=== PATIENT | male | born 1955 | race Caucasian/White ===

== ENCOUNTER 2024-11-21 09:21 | Outpatient (REF) | payer BC, MEDICARE, SELFPAY ==
--- NOTE | ~2024-11-21 | XR_ITS ---
EXAMINATION: XR SHOULDER 2 OR MORE VIEWS RIGHT HISTORY: M25.519 - Pain in unspecified shoulder COMPARISON: There are no prior studies available for comparison. FINDINGS: Three views of the right shoulder are submitted. Osseous mineralization is normal. There is no fracture or dislocation. The glenohumeral joint is maintained. There is moderate degenerative change of the AC joint with joint space narrowing. A soft tissue calcification adjacent to the greater tuberosity of the humerus is likely related to the rotator cuff. XR/XR shoulder RT min 2V IMPRESSION: Moderate osteoarthritis of the AC joint. Probable rotator cuff calcification. Electronically signed by: Mitchell Coronado MD 11/24/2024 09:24 AM JULIO CÉSAR
== END 2024-11-21 09:22 | disposition home or self-care (01) ==
LOC: HO.HOSX 09:21
PROVIDERS: Visit Provider Physician Assistant
DX: M25.511 Pain in right shoulder (principal); S46.009A Unspecified injury of muscle(s) and tendon(s) of the rotator cuff of unspecified shoulder, initial encounter; M75.31 Calcific tendinitis of right shoulder
CPT/HCPCS: 20610; 73030; 99202; J1010; J2003

== ENCOUNTER 2024-11-21 13:09 | Outpatient (AMB) | payer MEDICARE, SELFPAY ==
--- NOTE | 2024-11-21 13:27 | A.OFFVIS_ITS ---
Intake Visit Reasons: New Pt - RT shoulder pain Intake Note: Rad is a 69 year old left hand dominant male who presents today as a new patient for a evaluation of his right shoulder pain. Hx of injury about 3 weeks ago. Patient reports her was lifting his tire from his truck when he felt pain in his right shoulder. He mentions that his pain sometimes radiates up to his neck and moves down to his bicep. He states he tried taking Aleve which didn't give him much relief. Allergies No Known Allergies [No Known Allergies*] Allergy (Verified 11/21/24 13:44) HPI HPI New Pt - RT shoulder pain: Details: Mr. More 69-year-old left-hand dominant male who presents to the office today for evaluation of right shoulder pain. He reports that roughly 3 weeks ago he was lifting a tire into the truck and he felt right shoulder pain. He denies any popping or snapping sensation. He reports that he had a cortisone injection into the right shoulder roughly 3 years ago which gave him great relief. He denies any anti-inflammatory use or physical therapy. [facility] Social History (Updated 11/21/24 @ 13:45 by Hansel Mcneil) Alcohol intake: never Patient Tobacco Use Status: Never used Tobacco Current occupational status: employed Current occupation: Punching press/ left hand dominant Review of Systems Const All systems reviewed & are unremarkable except as noted in HPI and below Physical Exam Const General: cooperative, healthy appearing and no acute distress Resp Effort & Inspection: normal respiratory effort and able to speak in complete sentences Cardio Rate: regular rate Peripheral pulses: Peripheral pulses 2+ throughout GI Palpation (GI): Soft to palpation Skin Lesions: no lesions Rashes: no rashes Extrem Other: Right shoulder: Forward flexion and abduction to end range with pain. Pain with cross-body reach. 4/5 strength with empty can. Negative drop arm. NVI. Office Procedures AMB Joint Injection/Aspiration Joint Injection/Aspiration Primary Site: right shoulder Prep: site was prepped using aseptic technique, ethochloride spray was applied and injection warnings given Injected: 80 mg of, DepoMedrol, with 8 mL of (2% plain lido ) and in the [place] bcromial space Approach Used: posterolateral Procedure: The patient tolerated the procedure well, but had some pain with the injection and there was some relief with the local anesthesia Coding 39032 - Large joint Procedure code (CPT) selection complete Assessment & Plan Assessment & Plan (1) Rotator cuff injury: Code(s): S46.009A - Unspecified injury of muscle(s) and tendon(s) of the rotator cuff of unspecified shoulder, initial encounter Category: Medical (2) Calcific tendinitis of right shoulder: Code(s): M75.31 - Calcific tendinitis of right shoulder Category: Medical Plan Mr. More 69-year-old left-hand dominant male who presents to the office today for evaluation of right shoulder pain. He reports that roughly 3 weeks ago he was lifting a tire into the truck and he felt right shoulder pain. He denies any popping or snapping sensation. He reports that he had a cortisone injection into the right shoulder roughly 3 years ago which gave him great relief. He denies any anti-inflammatory use or physical therapy. The patient was offered a?cortisone?injection in the?right shoulder with 80 mg of DepoMedrol. The patient was explained the risks, benefits, and alternatives to receiving this injection. After receiving consent for the injection, the patient had the procedure done while in the office today. The patient tolerated the procedure well with no complications.? We did discuss the role of physical therapy in the office today however the patient has elected to hold off at this time. She continued to have pain that would be the next step in his treatment plan. X-rays obtained in the office today were reviewed by me, Savita Oliveira PA-C, and reveal calcific tendinitis of the right shoulder. No acute fracture or dislocation. Orders: Orders XR shoulder RT min 2V Today M25.519 - Pain in unspecified shoulder Coding Level of Care Code New Pt Level 3 (60897) Diagnoses Rotator cuff injury S46.009A Calcific tendinitis of right shoulder M75.31 CPT Codes Coding - Large joint: 59952 - Large joint ([id number])
== END 2024-11-21 14:14 | disposition home or self-care (01) ==
PROVIDERS: PCP Family Medicine; Visit Provider Physician Assistant
DX: S46.001A Unspecified injury of muscle(s) and tendon(s) of the rotator cuff of right shoulder, initial encounter (principal); M75.31 Calcific tendinitis of right shoulder
CPT/HCPCS: 20610; 99203

== ENCOUNTER 2024-12-29 14:45 | Outpatient (AMB) | payer MEDICARE, BC, SELFPAY ==
--- NOTE | 2024-12-29 15:07 | A.OFFPC_ITS ---
Vital Signs 12/29/24 15:19 Height 5 ft 8 in Weight 193 lb 6 oz BMI 29.4 BP 116/68 Position Sitting Respiration 14 Pulse 78 Pulse Source Pulse Oximeter Temp 98.0 F Temp Source Oral Pulse Oximetry (%) 96 Oxygen Delivery Method Room Air Intake Visit Reasons: Establish Care Intake Note: establish care Allergies No Known Allergies [No Known Allergies*] Allergy (Verified 12/29/24 15:14) Medication List - Last Reconciled 12/29/24 by Jerome Sofia MD No Known Home Meds Tobacco use date assessed: 12/29/24 Fall risk assessment: 1 Fall in past year Last assessed Fall Risk: 12/29/24 Dental Screening Dental Screen Date: 12/29/24 Did you have a dental visit in the last 12 months?: Yes Did you have a dental problem in the last 6 months where you did not have access to dental care?: No Was dental information given to patient?: No HPI Establish Care HPI Details New Patient? ?? Prior PCP:?Samy Donato Last office visit/CPE:? * + yrs Acute issue(s):? Shoulder pain Calcific tendonitis and saw Dr Stout. Had Steroid injection. Didn't help much. Sleep distubances - abnormal work shift ?? PMHx:? Carpal Tunnel SurgHx:? L Carpal tunnel FHx:?Dad: Lived to 90s, Bladder [place]. Mom: Breast [place] SocHx:? Nonsmoker. EtOH None. No drugs PFSH Social History Housing: House Alcohol intake: never Patient Tobacco Use Status: Never used Tobacco e-Cigarette/Vaping Use: Never Used Second Hand Smoke Exposure: No Current occupational status: employed Current occupation: Punching press/ left hand dominant Cognitive needs: No Hearing needs: No Vision needs: No Questionnaire PHQ-9 Over the last 2 weeks, how often have you been bothered by any of the following problems? 1. Little interest or pleasure in doing things: not at all 2. Feeling down, depressed, or hopeless: not at all 3. Trouble falling or staying asleep, or sleeping too much: several days 4. Feeling tired or having little energy: not at all 5. Poor appetite or overeating: not at all 6. Feeling bad about yourself - or that you are a failure or have let yourself or your family down: not at all 7. Trouble concentrating on things, such as reading the newspaper or watching television: not at all 8. Moving or speaking so slowly that other people could have noticed. Or the opposite - being so fidgety or restless that you have been moving around a lot more than usual: not at all 9. Thoughts that you would be better off or of hurting yourself in some way: not at all Total score: 1 Depression Screening Interpretation: Negative Depression Screening Done: Yes 99535 - PHQ-9 Billing: Yes Source: Developed by Drs. Mitchell Jaramillo, Madeleine Childs, Chaka Fitzgerald and colleagues, with an educational tamiko from [employer]. Thrive Questionnaire Date Thrive assessed: 12/29/24 I am a: Patient What is your living situation today?: I have a steady place to live Within the past 12 months, did the food you bought not last and you didn't have the money to get more?: Never true Within the past 12 months, did you worry whether your food would run out before you got money to buy more?: Never true Do you have trouble paying for medicines?: No Do you have trouble getting transportation to medical appointments?: No Do you have trouble paying your heating and electricity bill?: No Do you have trouble taking care of your child, family member or friend?: No Do you have trouble with day-to-day activities such as bathing, preparing meals, shopping, managing finances, etc.?: No Are you currently unemployed and looking for a job?: No Are you interested in more education?: No Please select the resources that you would like help with: None Currently or been in a relationship where the following occur: No concerns reported THRIVE Score: 0 AUDIT C Alcohol Use Questionnaire (AUDIT-C) 1. How often do you have a drink containing alcohol?: Never 3. How often do you have six or more drinks on one occasion?: Never Total Score: 0 Score Reviewed/Action Taken: Yes SHAHAB-7 AMB Questionnaire SHAHAB-7 Date SHAHBA - 7 assessed: 12/29/24 Feeling nervous, anxious, or on edge: 0 = Not at all Not being able to stop or control worryin = Not at all Worrying too much about different things: 0 = Not at all Trouble relaxin = Not at all Being so restless that it is hard to sit still: 0 = Not at all Becoming easily annoyed or irritable: 0 = Not at all Feeling afraid as if something awful might happen: 0 = Not at all Total SHAHAB-7 score (0-4 normal; 5-9 mild; 10-14 moderate; 15-21 severe): 0 Source: Developed by Drs. Mitchell Jaramillo, Madeleine Childs, Chaka Fitzgerald and colleagues, with an educational tamiko from [employer]. SHAHAB-7 Assessment Billing SHAHAB-7 Assessment Tool: SHAHAB-7 Assessment 97603 Review of Systems Const Denies chills, Denies fatigue, Denies fever(s), Denies headache(s) and Denies weakness ENT Denies dizziness and Denies headache(s) Card Denies chest pain, Denies lightheadedness, Denies dyspnea and Denies other (Palpitations) Resp Denies cough, Denies dyspnea, Denies wheezing and Denies other ( shortness of breath) Musc Denies numbness and Denies tingling Neuro Denies dizziness, Denies headache(s), Denies numbness, Denies tingling, Denies paresthesias and Denies weakness Psych Denies anxiety and Denies depression Endo Denies fatigue Aller/Immun Denies wheezing Physical exam (Primary Care) Vital Signs: Last Vital Signs Temp 98.0 F 12/29/24 15:19 Pulse 78 12/29/24 15:19 Resp 14 12/29/24 15:19 BP 116/68 12/29/24 15:19 Pulse Ox 96 12/29/24 15:19 Oxygen Delivery Method Room Air 12/29/24 15:19 BMI result Body Mass Index 29.4 Tobacco/Smoking Status: Tobacco use Status Tobacco use date assessed 12/29/24 12/29/24 15:25 Patient Tobacco Use Status Never used Tobacco 12/29/24 15:08 e-Cigarette/Vaping Use Never Used 12/29/24 15:25 PHQ-9: PHQ-9 Score PHQ-9: Total score 1 12/29/24 15:45 Depression Screening Interpretation: Negative Thrive Assessment: Date of Thrive Assessment Date Thrive assessed 12/29/24 12/29/24 15:25 Currently or been in a relationship where the following occur: No concerns reported Const General: no acute distress and well developed Nutritional Appearance: well nourished Orientation/consciousness: patient oriented x3 HENMT Head: Yes normocephalic and Yes atraumatic Eyes General: appearance normal, both eyes and all related structures Pupils: Equal, round and reactive pupils present EOM: EOMs intact bilaterally Resp Effort & Inspection: normal respiratory effort Auscultation: clear to auscultation bilaterally Cardio Rate: regular rate Rhythm: regular rhythm Heart sounds: S1 normal heart sound present, S2 normal heart sound present, no gallops, no murmurs and no rubs Neuro General: patient oriented x3 and gait normal Cranial nerves: Yes Equal, round and reactive pupils present Psych Affect: normal affect Coding Level of Care Code New Pt Level 3 (88553) Diagnoses Shoulder pain M25.519 Sleep disturbances G47.9 Laboratory exam ordered as part of routine general medical examination Z00.00 Additional Codes SHAHAB-7 Assessment Billing - SHAHAB-7 Assessment Tool: SHAHAB-7 Assessment 62901 ([id number]) PHQ-9 - 89793 - PHQ-9 Billing: Yes ([id number]) Assessment & Plan Assessment & Plan (1) Shoulder pain: Code(s): M25.519 - Pain in unspecified shoulder Category: Medical Plan: Intermittent,?recurrent?right?shoulder?pain and?patient?relates?th at?he?has?told?he?has?calcifications?there. Can?use?ice/heat Gentle?stretching Will?give?him?a?script?for?meloxicam Follow-up?with??Instrum?as?recommended (2) Sleep disturbances: Code(s): G47.9 - Sleep disorder, unspecified Category: Medical Plan: Patient?works?in?unusual?shift?which?is?likely?affecting?his?sleep Hold?off?on?allowing?naps Avoid?screens?or?other?activities?too?close?bedtime Can?try?intermittent?melatonin If?these?are?not?helping,?will?get?sleep?study (3) Laboratory exam ordered as part of routine general medical examination: Code(s): Z00.00 - Encounter for general adult medical examination without abnormal findings Category: Medical Plan: Check?labs Orders: Orders Comprehensive [place]. Panel Fast Today Z00.00 - Encounter for general adult medical examination without abnormal findings Complete Blood Count Auto Diff Today Z00.00 - Encounter for general adult medical examination without abnormal findings Lipid Panel Today Z00.00 - Encounter for general adult medical examination without abnormal findings Microalbumin, Random (w Creat) Today I10 - Essential (primary) hypertension Prostate Specific Antigen Scr Today Z12.5 - Encounter for screening for malignant neoplasm of prostate TSH reflex Free T4 Today Z00.00 - Encounter for general adult medical examination without abnormal findings UA and rflx microscopic Today Z00.00 - Encounter for general adult medical examination without abnormal findings Medications: New meloxicam 15 mg PO DAILY 30 days 30 tabs 2RF
[2024-12-29 15:19] VITALS: BP 116/68; PULSE 78; RESP 14; TEMP 36.7; O2SAT 96; BMI 29.4
== END 2024-12-29 16:15 | disposition home or self-care (01) ==
PROVIDERS: PCP Family Medicine; Visit Provider Family Medicine
DX: M25.519 Pain in unspecified shoulder (principal); G47.9 Sleep disorder, unspecified; Z00.00 Encounter for general adult medical examination without abnormal findings

== ENCOUNTER → 2024-12-29 14:58 | Outpatient (BNVA) | payer MEDICARE, BC, SELFPAY | PROVIDERS: PCP Family Medicine; Visit Provider Family Medicine | DX: M25.511 Pain in right shoulder (principal); G47.9 Sleep disorder, unspecified | CPT/HCPCS: 96127; 99202 ==

== ENCOUNTER 2025-02-07 12:25 | Outpatient (AMB) | payer MEDICARE, BC, SELFPAY ==
--- NOTE | 2025-02-07 12:27 | A.OFFVIS_ITS ---
Vital Signs 02/07/25 12:40 Height 5 ft 8 in Weight 193 lb BMI 29.3 Handedness Left Intake Visit Reasons: OV- Right shoulder pain s/p inj 11/21/24 Intake Note: Rad is a 69 year old left hand dominant male who presents today for a follow up of his Right Shoulder Calcific tendonitis. He was last seen on 11/21/2024 where he received an injection of 80mg Depo in the Right shoulder. Patient reports that the last injection didn't give him relief. He state that his shoulder still hurts with movements. Allergies No Known Allergies [No Known Allergies*] Allergy (Verified 02/07/25 12:39) HPI HPI OV- Right shoulder pain s/p inj 11/21/24: Details: Mr. More is a 69-year-old left-hand dominant male who presents to the office today for follow-up of right shoulder pain. He was last seen on 11/21/2024 and was given a cortisone injection into the right shoulder. He reports that he did have some relief with the injection but continues to have pain. We had discussed attending physical therapy but the patient had elected to hold off at that time. I recommended that the patient attend physical therapy if he continued to have pain after the cortisone injection. [facility] Social History Housing: House Alcohol intake: never Patient Tobacco Use Status: Never used Tobacco e-Cigarette/Vaping Use: Never Used Second Hand Smoke Exposure: No Current occupational status: employed Current occupation: Punching press/ left hand dominant Cognitive needs: No Hearing needs: No Vision needs: No Review of Systems Const All systems reviewed & are unremarkable except as noted in HPI and below Physical Exam Vital Signs: BMI result Body Mass Index 29.3 Const General: cooperative, healthy appearing and no acute distress Resp Effort & Inspection: normal respiratory effort and able to speak in complete sentences Cardio Rate: regular rate Peripheral pulses: Peripheral pulses 2+ throughout GI Palpation (GI): Soft to palpation Skin Lesions: no lesions Rashes: no rashes Extrem Other: Right shoulder: Forward flexion and abduction to end range with pain. Pain with cross-body reach. 4/5 strength with empty can. Negative drop arm. NVI. Assessment & Plan Assessment & Plan (1) Calcific tendinitis of right shoulder: Code(s): M75.31 - Calcific tendinitis of right shoulder Category: Medical Plan Mr. More is a 69-year-old left-hand dominant male who presents to the office today for follow-up of right shoulder pain. He was last seen on 11/21/2024 and was given a cortisone injection into the right shoulder. He reports that he did have some relief with the injection but continues to have pain. We had discussed attending physical therapy but the patient had elected to hold off at that time. I recommended that the patient attend physical therapy if he continued to have pain after the cortisone injection. While in the office today, we discussed the role of attending physical therapy again. Patient is apprehensive to do so as he has done physical therapy in the past for other ailments and did not have adequate relief of his symptoms. He would like to repeat injection although it is too soon to do so. I would like to see him back at the three-month chao status post his last injection on 11/21/2024 for repeat injection. I did briefly discuss with him the process in order to obtain an MRI. I would like for him to attend physical therapy 1st prior to obtaining an MRI as the MRI would be used for surgical planning. I briefly discussed the role of surgical intervention that would remove the calcifications within the rotator cuff tendon resulting in a rotator cuff repair and the lengthy recovery time associated with this. The patient has elected to hold off on physical therapy at this time regardless. Patient will follow-up in roughly 2 weeks when he is due for repeat cortisone injection, sooner if needed. Coding Level of Care Code Est Pt Level 3 (08789) Diagnoses Calcific tendinitis of right shoulder M75.31
[2025-02-07 12:40] VITALS: BMI 29.3
== END 2025-02-07 13:02 | disposition home or self-care (01) ==
PROVIDERS: PCP Family Medicine; Visit Provider Physician Assistant
DX: M75.31 Calcific tendinitis of right shoulder (principal)
CPT/HCPCS: 99213

== ENCOUNTER → 2025-02-07 12:25 | Outpatient (BNVA) | payer MEDICARE, BC, SELFPAY | PROVIDERS: PCP Family Medicine; Visit Provider Physician Assistant | DX: M75.31 Calcific tendinitis of right shoulder (principal) | CPT/HCPCS: 99212 ==

== ENCOUNTER 2025-02-20 08:09 | Outpatient (REF) | payer MEDICARE, BC, SELFPAY ==
[2025-02-20 11:22] LABS: MANUAL DIFF FLAG NO
[2025-02-20 11:23] LABS: Appearance Urine Clear; Color Urine Yellow; Glucose Urine UA Negative (Negative); Leukocyte Esterase Urine Negative (Negative); Nitrite Urine Negative (Negative); PH 7.5 (5.0-9.0); Specific Gravity - Urine <= 1.005 (1.005-1.025); Urine Blood Negative (Negative); Urine Ketones Negative (Negative); Urine Protein Negative (Neg-Trace)
[2025-02-20 11:30] LABS: Basophils Absolute Auto 0.1 X10*3/uL (0.0-0.2); Basophils Percent Auto 1.1 % (0-2); Eosinophils Percent Auto 0.2 % (0-4); Hematocrit 49.7 % (42.0-52.0); Hemoglobin 16.3 g/dl (14.0-18.0); Imm Gran Abs Auto 0.02 X10*3/uL (0.00-0.03); Imm Gran Pct Auto 0.4 % (0.0-0.4); Lymphocytes Absolute Auto 1.8 X10*3/uL (1.2-4.9); Lymphocytes Percent Auto 34.1 % (20-40); Mean Corpuscular HGB Conc 32.8 g/dl (31.0-36.0); Mean Corpuscular Hemoglobin 27.8 pg (27.0-33.0); Mean Corpuscular Volume 84.8 fL (80.0-98.0); Mean Platelet Volume 11.5 fL (9.4-12.4); Monocytes Absolute Auto 0.6 X10*3/uL (0.1-1.2); Monocytes Percent Auto 10.4 % (2-11); Neutrophils Absolute Auto 2.9 x10*3/uL (2.0-8.3); Neutrophils Percent Auto 53.8 % (45-73); Platelet Count 116 X10*3/uL (160-400); Red Blood Count 5.86 X10*6/uL (4.60-5.80); Red Cell Distribution Width 13.7 % (11.0-16.0); White Blood Count 5.4 X10*3/uL (4.8-10.8)
[2025-02-20 11:55] LABS: Prostate Specific Antigen Scr 2.21 ng/mL (<0.05-4.0)
[2025-02-20 12:07] LABS: Creatinine Urine 28.28 mg/dL; Microalbumin Urine < 5.0 mg/L
[2025-02-20 12:58] LABS: Alanine Aminotransferase 30 U/L (0-40); Albumin Level 4.5 g/dL (3.5-5.0); Anion Gap 13 (12-20); Aspartate Amino Transferase 29 U/L (5-37); Bilirubin Total 1.4 mg/dL (0.0-1.0); Blood Urea Nitrogen 19 mg/dL (9-16); Calcium 9.3 mg/dL (8.4-10.2); Carbon Dioxide 25 mmol/L (22-29); Chloride 106 mmol/L (96-108); Cholesterol 152 mg/dL (<200); Estimated Glomerular Filt Rate > 60; Glucose Fasting 95 mg/dL (60-99); HDL Cholesterol 43 mg/dL (>40); LDL Cholesterol Calculated 79 mg/dL (<100); Potassium 4.2 mmol/L (3.3-5.1); Sodium 140 mmol/L (135-145); TSH reflex Free T4 2.28 uIU/mL (0.32-4.0); Total Protein 7.5 g/dL (6.5-8.0); Triglycerides 150 mg/dL (<150)
[2025-02-20 13:13] LABS: Alkaline Phosphatase 54 U/L (39-117)
== END 2025-02-20 08:10 | disposition home or self-care (01) ==
LOC: HO.WFDLDS 08:09
PROVIDERS: Visit Provider Family Medicine
DX: Z00.00 Encounter for general adult medical examination without abnormal findings (principal); I10 Essential (primary) hypertension; Z12.5 Encounter for screening for malignant neoplasm of prostate
CPT/HCPCS: 36415; 80053; 80061; 81003; 82043; 82570; 84153; 84443; 85025

== ENCOUNTER 2025-02-23 08:43 | Outpatient (AMB) | payer MEDICARE, BC, SELFPAY ==
--- NOTE | 2025-02-23 08:46 | MHC.OFFVIS ---
Vital Signs 02/23/25 08:53 Height 5 ft 8 in Weight 193 lb BMI 29.3 Handedness Left Intake Visit Reasons: rt shoulder inj (80), last inj 11/21/24 Intake Note: Rad is a 69 year old left hand dominant male who presents today for a repeat injection for his right shoulder, last injection 11/21/24. Patient reports that his last injection gave him relief. He noticed his pain coming back about a month ago. Allergies No Known Allergies [No Known Allergies*] Allergy (Verified 02/23/25 08:53) HPI HPI rt shoulder inj (80), last inj 11/21/24: Details: Mr. Nunez is a 69 year old left hand dominant male who presents today for a repeat injection for his right shoulder, last injection 11/21/24. Patient reports that his last injection gave him relief. He noticed his pain coming back about a month ago. [facility] Social History Housing: House Alcohol intake: never Patient Tobacco Use Status: Never used Tobacco e-Cigarette/Vaping Use: Never Used Second Hand Smoke Exposure: No Current occupational status: employed Current occupation: Punching press/ left hand dominant Cognitive needs: No Hearing needs: No Vision needs: No Review of Systems Const All systems reviewed & are unremarkable except as noted in HPI and below Physical Exam Vital Signs: BMI result Body Mass Index 29.3 Const General: cooperative, healthy appearing and no acute distress Resp Effort & Inspection: normal respiratory effort and able to speak in complete sentences Cardio Rate: regular rate Peripheral pulses: Peripheral pulses 2+ throughout Skin Lesions: no lesions Rashes: no rashes Extrem Other: Right shoulder: Forward flexion and abduction to end range with pain. Pain with cross-body reach. 4/5 strength with empty can. Negative drop arm. NVI. Office Procedures AMB Joint Injection/Aspiration Joint Injection/Aspiration Primary Site: right shoulder Prep: site was prepped using aseptic technique, ethochloride spray was applied and injection warnings given Injected: 80 mg of, DepoMedrol, with 8 mL of (2% plain lido ) and in the subcromial space Approach Used: posterolateral Procedure: The patient tolerated the procedure well, but had some pain with the injection and there was some relief with the local anesthesia Coding 70729 - Large joint Procedure code (CPT) selection complete Assessment & Plan Assessment & Plan (1) Calcific tendinitis of right shoulder: Code(s): M75.31 - Calcific tendinitis of right shoulder Category: Medical (2) Rotator cuff injury: Code(s): S46.009A - Unspecified injury of muscle(s) and tendon(s) of the rotator cuff of unspecified shoulder, initial encounter Category: Medical (3) Shoulder pain: Code(s): M25.519 - Pain in unspecified shoulder Category: Medical Plan The patient was offered a cortisone injection in the right shoulder with 80 mg of DepoMedrol. The patient was explained the risks, benefits, and alternatives to receiving this injection. After receiving consent for the injection, the patient had the procedure done while in the office today. The patient tolerated the procedure well with no complications. Follow-up will be p.r.n., or sooner if needed Coding Level of Care Code Est Pt Level 3 (88235) Diagnoses Calcific tendinitis of right shoulder M75.31 Rotator cuff injury S46.009A Shoulder pain M25.519 CPT Codes Coding - 08956 Large joint: 45633 - Large joint ([id number])
[2025-02-23 08:53] VITALS: BMI 29.3
== END 2025-02-23 09:05 | disposition home or self-care (01) ==
LOC: HO.HOS 08:44
PROVIDERS: PCP Family Medicine; Visit Provider Physician Assistant
DX: M75.31 Calcific tendinitis of right shoulder (principal); S46.001A Unspecified injury of muscle(s) and tendon(s) of the rotator cuff of right shoulder, initial encounter; M25.511 Pain in right shoulder
CPT/HCPCS: 20610; 99213

== ENCOUNTER → 2025-02-23 08:43 | Outpatient (BNVA) | payer MEDICARE, BC, SELFPAY | PROVIDERS: PCP Family Medicine; Visit Provider Physician Assistant | DX: M75.31 Calcific tendinitis of right shoulder (principal); S46.001A Unspecified injury of muscle(s) and tendon(s) of the rotator cuff of right shoulder, initial encounter; X58.XXXA Exposure to other specified factors, initial encounter; Y93.9 Activity, unspecified; Y92.9 Unspecified place or not applicable; Y99.9 Unspecified external cause status | CPT/HCPCS: 20610; 99212; J1010; J2003 ==

== ENCOUNTER 2025-07-06 20:18 | Emergency (ER) | payer MEDICARE, BC, SELFPAY ==
--- NOTE | ~2025-07-06 | XR_ITS ---
CLINICAL HISTORY: dropped pallet on foot, ecchymosis 3 view left foot Comparison: None provided Findings: No acute fracture or dislocation. Soft tissue swelling in the ankle. No radiopaque foreign body. IMPRESSION: Soft tissue swelling in the ankle without acute fracture or dislocation. This document has been electronically signed by: Xiang Gotti MD on 07/06/2025 21:07:08
--- NOTE | ~2025-07-06 | US_ITS ---
CLINICAL HISTORY: pain, swelling Venous duplex ultrasound left lower extremity Comparison: None provided Findings: The visualized deep veins are fully compressible with normal Doppler color flow and spectral tracings. No popliteal cyst. IMPRESSION: 1. Negative for left lower extremity deep vein thrombosis. This document has been electronically signed by: Xiang Gotti MD on 07/06/2025 22:27:30
--- NOTE | ~2025-07-06 | XR_ITS ---
CLINICAL HISTORY: alonzo injury, ? FB 2 view left tibia-fibula Comparison: None provided Findings No fractures or dislocations. No joint effusion. Arthritic change in the ankle. No radiopaque foreign body. IMPRESSION: No acute fracture or dislocation. This document has been electronically signed by: Xiang Gotti MD on 07/06/2025 21:09:03
[2025-07-06 20:20] VITALS: BP 150/86; PULSE 84; RESP 18; TEMP 36.6; O2SAT 96; BMI 28.1
--- NOTE | 2025-07-06 20:21 | ED.GENADULT ---
HPI - General Adult General Chief complaint: Extremity Injury, Lower Stated complaint: left lower leg inj Time Seen by Provider: 07/06/25 20:59 Source: patient Mode of arrival: ambulatory Limitations: no limitations History of Present Illness ED Provider: GREGOR HPI narrative: 69 yo male with no sig PMH not a diabetic hit his L leg with a pallet of wood last Thursday but has been caring for his due to recent surgery. He notes more swelling and redness but no fevers, chills. He has no numbness/weakness. He can walk on it. He came as he realized now that his 's health is stable he needs to have his leg looked at. MD complaint: cellulitis Onset (ago): day(s) (6) Location: left and lower extremity Radiation: non-radiation Severity: mild Quality: aching Pain Consistency: intermittent Relieving factors: none Exacerbating factors: movement Associated symptoms: rash Treatments prior to arrival: none Related Data Previous Rx's ?Medication ?Instructions ?Recorded meloxicam 15 mg tablet 15 mg PO DAILY 30 days #30 tabs 07/03/25 cephalexin 500 mg capsule 500 mg PO QID 7 days #28 caps 07/06/25 doxycycline hyclate 100 mg capsule 100 mg PO BID 7 days #14 caps 07/06/25 mupirocin 2 % topical ointment 1 appl topical BID 7 days #15 grams 07/06/25 Allergies Allergy/AdvReac Type Severity Reaction Status Date / Time No Known Allergies (No Known Allergy Verified 07/06/25 20:24 Allergies*) Review of Systems Review of Systems: Constitutional : No Fever, No Chills ENT/Mouth : No sore throat, No Rhinorrhea Eyes: No Eye Pain, No Swelling, No Redness Cardiovascular : No Chest Pain, No SOB Respiratory : No Cough, No Sputum Gastrointestinal : No Nausea, No Vomiting, No Diarrhea, No abdominal Pain Genitourinary : No Dysuria, No Hematuria Musculoskeletal : No joint pain, No Myalgias, pos Joint Swelling Skin : No Skin Lesions, positive skin rash Neuro : No Weakness, No Numbness, No Headache All other systems reviewed and are negative [facility] Past Medical History Attestation statement: The following information was validated with the patient. Source: old records reviewed Medical History Rotator cuff injury Social History Social History Housing: House Alcohol intake: never Patient Tobacco Use Status: Never used Tobacco Smoked in Last 30 Days: No e-Cigarette/Vaping Use: Never Used Second Hand Smoke Exposure: No Use of substances other than those prescribed or required for medical reasons: No Advance Directives: No Current occupational status: employed Current occupation: Punching press/ left hand dominant Cognitive needs: No Hearing needs: No Vision needs: No Physical Exam ED Vital Signs: Vital Signs - 24 hr 07/06/25 20:20 Temperature 97.9 F Pulse Rate 84 Respiratory Rate 18 Blood Pressure 150/86 H Pulse Oximetry 96 Oxygen Delivery Method Room Air BMI result Body Mass Index 28.1 Appearance: Alert. Oriented X3. No acute distress. Eyes: Pupils equal, round and reactive to light. ENT: Pharynx normal. Neck: Normal inspection. CVS: Pulses normal. Respiratory: No respiratory distress. Abdomen: Soft and nontender. Skin: Skin warm and dry. Normal skin color. Normal skin turgor. Extremities: L leg edema 1+ pitting alonzo to prox tib, bruising noted along medial aspect of foot, open wound with no drainage noted middle of alonzo but there is mild warmth and redness anterior alonzo, no pain with any movements of toes or ankle joint Neuro: Oriented X 3. No motor deficit. No sensory deficit. Course Course Course Narrative: This is a rapid medical exam performed by Briseida Mg NP: Additional HPI, ROS, PE not included below will be deferred to primary provider. Patient is a 69-year-old male presenting with complaint of left lower leg pain and swelling. States he accidentally dropped a wooden pallet on his left alonzo a few days ago. Has had some purulent drainage, also reporting ecchymosis to left foot. Denies history of DM. Plan: x-ray, basic labs Medical Decision Making Medical Decision Making MDM Narrative: 69 yo male with no sig PMH here s/p direct blow injury to LLE now with increased redness and swelling. He is NV intact, he has soft compartments. At this time will obtain xray and DVT study. If negative will start on oral abx. He has no systemic symptoms Differential Diagnosis Differential Diagnoses: The differential diagnosis associated with the presentation includes cellulitis, DVT, sprain Admission/Observation Consideration of admission/observation: Escalation of care including admission/observation considered not toxic can tolerate oral abx Independent Interpretation I performed an independent interpretation of an: Plain X-Ray (no fx) and Ultrasound (no DVT) Radiology Impression Discussion of test interpretation with radiology: I have reviewed the radiologist's reading. Prescription Management I considered prescription management with: Antibiotic Discharge Plan Discharge Clinical Impression: Cellulitis Qualifiers: Site of cellulitis: extremity Site of cellulitis of extremity: lower extremity Laterality: left Qualified Code(s): L03.116 - Cellulitis of left lower limb Patient Disposition: Home, Self-Care Instructions: Cellulitis (ED) Additional Instructions: xray shows no broken bones use crutches and keep elevated for 5 days no blood clots return for any worsening redness, fevers, vomiting, increased pain, or any other concerns On a cephalosporin?antibiotic, softer bowel movements are to be expected. Call your provider if you move your bowels more than 4 times a day, your bowel movements are almost all liquid, or you get a rash.?? On doxycycline, do not take pills immediately before going to bed and swallow pills with plenty of water. Avoid direct sunlight, iron, antacids, and Pepto Bismol. Call your provider if you develop new ringing in your ears, new problems hearing, dizziness, difficulty swallowing, rash, abdominal discomfort, nausea, or diarrhea.? Prescriptions: New doxycycline hyclate 100 mg capsule 100 mg PO BID 7 Days Qty: 14 0RF cephalexin 500 mg capsule 500 mg PO QID 7 Days Qty: 28 0RF mupirocin 2 % ointment 1 appl topical BID 7 Days Qty: 15 0RF No Action meloxicam 15 mg tablet 15 mg PO DAILY 30 Days Qty: 30 2RF Print Language: Kazakh
--- OUTSIDE RECORDS SUMMARY | 2025-07-06 21:23 | XMS_ITS | Clinical Summary ---
Author Organization [facility] Address [address] [place], [place] [id number] Phone Care Team Providers Care Central Supply Supervisor Name Role Phone Herbert Bell DO Primary Care Provider [phone] Allergies No known active allergies Medications naproxen (NAPROSYN) 500 MG tablet Take 1 tablet (500 mg total) by mouth 2 (two) times a day for 3 days. Then twice daily as needed for pain, inflammation 20 tablet 4 Active meloxicam (MOBIC) 15 MG tablet Take 1 tablet by mouth every morning. 5 Active Active Problems No known active problems Immunizations Immunization Administration Dates Next Due COVID-19 (Pre-09/07) Moderna Vaccine, mRNA, PF 04/08/2021,03/11/2021 INFLUENZA, SPLIT VIRUS, TRIVALENT PF 08/28/2017, 08/25/2016,09/14/2015 INFLUENZA, SPLIT VIRUS, TRIV ALENT W/ PRESERVATIVE IM 07/26/2021 Influenza High-Dose Quadriva lent Preservative Free IM 09/19/2022 Influenza Quadrivalent Preservative Free IM 07/2020 Influenza Quadrivalent w/ Preservative IM 2018,08/28/2018 Tdap 10/13/2016 Zoster recombinant 05/31/2019,03/19/2019 Social History Tobacco Use Types Packs/Day Years Used Date Smoking Tobacco: Former Cigarettes Smokeless Tobacco: Never Alcohol Use Standard Drinks/Week Comments Never 0 (1 standard drink = 0.6 oz pur e alcohol) Education Answer Date Recorded Are you interested in more education? Not on simran e 03/13/2023 Are you concerned about learning? Not on file 03/13/2023 No 03/13/2023 No 03/13/2023 Digital Access Answer Date Recorded No 04/11/2023 No 04/11/2023 Reliable internet access at home? Not on file 04/11/2023 Device with a working camera? Not on file Sex and Gender Information Value Date Recorded Sex Assigned at Not on file Legal Sex Male 9:52 PM EDT Gender Identity Not on file Sexual Orientation Not on file Last Filed Vital Signs Vital Sign Reading Time Taken Comments Blood Pressure 139/83 01/25/2025 10:14 AM EDT Pulse 91 01/25/2025 10:14 AM EDT Temperature 37 C (98.6 F) 01/25/2025 10:14 AM EDT Respiratory Rate 18 01/25/2025 10:14 AM EDT Oxygen Saturation 98% 01/25/2025 10:14 AM EDT Inhaled Oxygen Concentration - - Weight 86.2 kg (190 lb) 01/25/2025 10:14 AM EDT Height 172.7 cm (5' 8 ) 01/25/2025 10:14 AM EDT Body Mass Index 28.89 01/25/2025 10:14 AM EDT Plan of Treatment Health Maintenance Due Date Last Done Comments LIPID PANEL 1957 DEPRESSION SCREENING 1969 SMOKING Hx and SMOKELESS TOBACCO SCREENING 1970 HEPATITIS C SCREENING 1975 SCREENING FOR DIABETES 1992 COLOGUARD 2002 COLONOSCOPY 2002 COLORECTAL CANCER SCREENING 2002 FIT TEST 2002 FOBT 2002 SIGMOIDOSCOPY 2002 VIRTUAL COLONOSCOPY 2002 PNEUMOCOCCAL VACCINES (50+ years) (1 of 1 - PCV) 2007 ABDOMINAL AORTIC ANEURYSM (AAA) SCREENING 2022 COVID-19 VACCINE (4 - 2023-2 5 season) 2024 10/05/2021, 04/08/2021, 03/11/2021 Adult Td,Tdap Booster 10/13/2026 10/13/2016 RSV VACCINE (1 - 1-dose 75+ series) 2032 ZOSTER VACCINES Completed 05/31/2019, 03/19/2019 HEPATITIS A VACCINES Aged Out No long er eligible based on patient's age to complete this topic HIB VACCINES Aged Out No longer eligi ble based on patient's age to complete this topic MENINGOCOCCAL VACCINES (ACWY) Aged Out No longer eligible based on patient's age to complete this topic MENINGOCOCCAL VACCINES (B) Aged Out N o longer eligible based on patient's age to complete this topic Medical Devices Not on file Insurance [facility] Member Subscriber Plan / Payer (Ef fective 2020-Present) Name:Romi More Relation to Subscriber:Self Name:Romi More Payer ID:Not on file Type:[facility] Address: [address] MEDEX SUPPLEMENT MEDICARE PART A & B [facility] [employer] MEDEX SUPPLEMENT MEDICARE PART A & B [facility] [employer]OSS MEDEX SUPPLEMENT [employer] MEDEX SUPPLEMENT [facility] [employer] MEDEX SUPPLEMENT MEDICARE PART A & B [facility] MEDEX SUPPLEMENT [facility] [employer] MEDEX SUPPLEMENT MEDICARE PART A & B Member Subscriber Plan / Payer (Ef fective 2022-Present) Name:Romi More Member ID:[id number] Relation to Subscriber:Self Name:Romi More Subscriber ID:[id number] Payer ID:[id number] Group ID:Not on file Type:Medicare Address: [facility] [email or web address] [facility] [address] [place] [address] [facility] [employer] MEDEX SUPPLEMENT MEDICARE PART A & B [facility] [employer] MEDEX SUPPLEMENT MEDICARE PART A & B Care Teams Central Supply Supervisor Relationship Specialty Start Date End Date Herbert Bell DO [address] [place] [address] PCP - General 08/31/17 Additional Source Comments The information contained in this document represents components of the legal health record. It is not the complete legal health record.[facility]
[2025-07-06 22:19] VITALS: BP 150/86; PULSE 84; RESP 18; TEMP 36.6; O2SAT 96
== END 2025-07-06 22:24 | disposition home or self-care (01) ==
PROVIDERS: Emergency Provider Emergency Medicine; PCP Family Medicine
DX: M79.89 Other specified soft tissue disorders (principal); L03.116 Cellulitis of left lower limb
CPT/HCPCS: 73590; 73630; 93971; 99283; 99284